=== PATIENT | male | born 1955 | race Caucasian/White ===

== ENCOUNTER 2020-02-20 09:20 | Day surgery (SDC) | payer OTHER ==
[2020-02-16 10:11] LABS: Absolute Lymphocytes (CBC) 0.6 K/uL (0.7-4.9); Basophils % 0.6 % (0-1.3); Hematocrit 32.3 % (39.6-49.0); Lymphocytes % 9.7 % (15.3-44.8); MPV 8.1 fL (7.6-11.3); RBC Red Blood Cell Count 3.99 M/uL (4.33-5.43)
--- NOTE | 2020-02-16 10:19 | RAD REPORT ---
EXAM DESCRIPTION: RAD - Chest Pa And Lat (2 Views) - 02/16/2020 9:43 am CLINICAL HISTORY: preop, pending hernia surgery COMPARISON: None TECHNIQUE: Frontal and lateral views of the chest were obtained. FINDINGS: The lungs are clear. Moderately large hiatal hernia is again identified matching the CT s tudy. Heart size is normal and central vasculature is within normal limits. No pleural effusion or p neumothorax seen. No acute bony finding noted. No aortic abnormality. IMPRESSION: No acute cardiopulmonary process.
--- NOTE | 2020-02-17 12:59 | EKG ---
Test Date: 2020-02-16 Test Time: 08:39:02 Information Security: STEVEN MEASUREMENT RESULTS: Intervals: Rate: 67 MN: 144 QRSD: 92 QT: 400 QTc: 422 [place]: P: 54 MN: 144 QRS: 18 T: 40 INTERPRETIVE STATEMENTS: Normal sinus rhythm Normal ECG Compared to ECG 06/11/2007 06:21:38 No significant changes Electronically Signed On 02-17-20 12:58:55 CDT by Betito Montes De Oca
[2020-02-20] MEDS ORDERED: CEFAZOLIN/SWI 1gm 1 GM/10 ML SYR ONE (09:50)
[2020-02-20] MEDS ORDERED: Ringers Lactate 1,000 ML IV ONE (09:50)
[2020-02-20] MEDS ORDERED: FENTANYL CITR 100 MCG/2 ML ONE (09:52)
[2020-02-20] MEDS ORDERED: ROCURONIUM 50 MG/5 ML VIAL IV ONE (09:52)
[2020-02-20] MEDS ORDERED: LIDOCAINE 1% MPF 5 ML VIAL ONE (09:52)
[2020-02-20] MEDS ORDERED: MIDAZOLAM HCL 2 MG/2 ML INJ ONE (09:52)
[2020-02-20] MEDS ORDERED: propofoL 200 MG/20 ML VIAL IV ONE (09:52)
[2020-02-20] MEDS ORDERED: dexAMETHasone 10 MG/ML VIAL ONE (10:48)
[2020-02-20] MEDS ORDERED: NS KCL 20MEQ 1,000 ML IV SCH (11:00)
[2020-02-20] MEDS ORDERED: ONDANSETRON 4 MG/2 ML VIAL ONE (11:13)
[2020-02-20] MEDS ORDERED: KETOROLAC 30 MG/ML INJ ONE (11:13)
[2020-02-20] MEDS ORDERED: GLYCOPYRROLATE 0.2 MG/ML SYR ONE (11:13)
[2020-02-20] MEDS ORDERED: Mastisol Adhesive Liq ONE (11:17)
[2020-02-20] MEDS ORDERED: NEOSTIGMINE 1 MG/ML -5 ML ONE (11:17)
--- OUTSIDE RECORDS SUMMARY | 2020-02-20 11:32 | XMS REPORT | Clinical Summary ---
:1955 Author Organization [facility] Address [address] [place] [address] Care Team Providers Name Role Phone Pcp Primary Care Provider Unavailable Allergies No Known Allergies Medications Medication Sig Dispensed Refills Start Date End Date Status lisinopril Take 20 mg by 0 Activ e (PRINIVIL,ZESTRIL) mouth daily. 20 MG tablet omeprazole Take 40 mg by 0 Activ e (PRILOSEC) 40 MG mouth daily. capsule atorvastatin Take 40 mg by 0 Act briseida (LIPITOR) 40 MG mouth daily. tablet acetaminophen-codei Take 1 tablet by 30 tablet 0 02/25/2019 ne (TYLENOL #3) mouth every 4 300-30 mg per (four) hours as tablet needed for Pain for up to 10 days. Max Daily Amount: 6 tablets docusate sodium Take 1 capsule 30 capsule 0 02/25/2019 019 (COLACE) 100 MG (100 mg total) by capsule mouth 2 (two) times daily as needed for Constipation for up to 10 days. ciprofloxacin HCl Take 1 tablet (500 10 tablet 0 02/25/2019 (CIPRO) 500 MG mg total) by mouth tablet 2 (two) times daily for 5 days. Active Problems Problem Noted Date Prostate cancer 02/23/2019 Encounters Date Type Specialty Care Team Description 02/23/2019 Surgery Pietro Ojeda MD ROBOTIC LAPAROSCOPY,PRO STAT ECTOMY W/ PELVI C LYMPH NODE DISSECTION 02/23/2019 Anesthesia Event Judy Rosario NP 02/23/2019 - Hospital Encounter General Internal Pietro Ojeda MD 02/25/2019 Medicine 02/23/2019 Travel after 02/19/2019 Social History Tobacco Use Types Packs/Day Years Used Date Former Smoker Quit: 1998 Smokeless Tobacco: Never Used Alcohol Use Drinks/Week oz/Week Comments No Alcohol Habits Answer Date Recorded How often do you have a drink containing alcohol? Never 02/10/2019 How many drinks containing alcohol do you have on a typical Not asked day when you are drinking? How often do you have six or more drinks on one occasion? No t asked Sex Assigned at Date Recorded Male 02/01/2019 4:15 AM CDT Job Start Date Occupation Industry Not on file Not on file Not on file Travel History Travel Start Travel End No recent travel history available. Last Filed Vital Signs Vital Sign Reading Time Taken Blood Pressure 119/69 02/25/2019 3:09 PM CDT Pulse 109 02/25/2019 3:09 PM CDT Temperature 37.3 C (99.2 F) 02/25/2019 3:09 PM CDT Respiratory Rate 19 02/25/2019 3:09 PM CDT Oxygen Saturation 97% 02/25/2019 3:09 PM CDT Inhaled Oxygen Concentration - - Weight 91.6 kg (202 lb) 02/23/2019 6:11 AM CDT Height 175.3 cm (5' 9.02") 02/23/2019 6:11 AM CDT Body Mass Index 29.82 02/23/2019 6:11 AM CDT Plan of Treatment Not on file Procedures Procedure Name Priority Date/Time Associated Comments Diagnosis HEMOGLOBIN AND STAT 02/25/2019 1:48 Results f or this HEMATOCRIT PM CDT procedure are i n the results section. CBC W/PLT COUNT & Routine 02/25/2019 4:16 Result s for this AUTO DIFFERENTIAL AM CDT procedure are in the results section. CBC W/PLT COUNT & Routine 02/25/2019 4:16 Result s for this AUTO DIFFERENTIAL AM CDT procedure are in the results section. BASIC METABOLIC PANEL Routine 02/25/2019 4:16 Re sults for this (7) AM CDT procedure are i n the results section. TRANSFUSION SERVICE 02/24/2019 5:51 REPORT - SCAN PM CDT CBC W/PLT COUNT & Routine 02/24/2019 7:06 Result s for this AUTO DIFFERENTIAL AM CDT procedure are in the results section. CBC W/PLT COUNT & Routine 02/24/2019 7:06 Result s for this AUTO DIFFERENTIAL AM CDT procedure are in the results section. BASIC METABOLIC PANEL Routine 02/24/2019 7:06 Re sults for this (7) AM CDT procedure are i n the results section. HEMOGLOBIN AND STAT 02/23/2019 8:22 Results f or this HEMATOCRIT PM CDT procedure are i n the results section. HEMOGLOBIN AND STAT 02/23/2019 2:40 Results f or this HEMATOCRIT PM CDT procedure are i n the results section. BASIC METABOLIC PANEL STAT 02/23/2019 2:40 Re sults for this (7) PM CDT procedure are i n the results section. TISSUE EXAM AP Routine 02/23/2019 9:06 Results for this AM CDT procedure are i n the results section. PROCEDURE W/ DAVINCI 02/23/2019 7:30 Prostate cancer AM CDT (HCC) Case Notes PANEL 1: 3 HRS Special Needs (DAVINCI SI) ROBOTIC LAPAROSCOPY,PROSTATECTOMY W/ 02/23/2019 7:30 AM CDT Prostate cancer PELVIC LYMPH NODE DISSECTION (HCC) Case Notes PANEL 1: 3 HRS Special Needs (DAVINCI SI) ABORH, MANUAL STAT 02/23/2019 6:48 AM CDT Res ults for this procedure are in the results section . after 02/19/2019 Results Hemoglobin and hematocrit (02/25/2019 1:48 PM CDT)Only the most recent of3 resultswithin the time period is included. Hemoglobin 8.4 (L) 13.7 - 17.5 GM/DL [facility] Hematocrit 25.8 (L) 40.1 - 51.0 % [facility] Specimen Blood Performing Organization Address City/State/Zipcode Phone Number [facility] [address] [place] [address] CENTER CBC with platelet count + automated diff (02/25/2019 4:16 AM CDT)Only the most recent of2 resultswithin the time period is included. WBC 10.4 3.5 - 10.5 K/L [facility] RBC 2.84 (L) 4.63 - 6.08 M/L [facility] Hemoglobin 8.3 (L) 13.7 - 17.5 GM/DL [facility] Hematocrit 25.8 (L) 40.1 - 51.0 % [facility] HE ALTH [facility] CENTER MCV 90.8 79.0 - 92.2 fL [facility] HE ALTH [facility] MCH 29.2 25.7 - 32.2 pg [facility] HE ALTH [facility] MCHC 32.2 (L) 32.3 - 36.5 GM/DL [facility] RDW 13.2 11.6 - 14.4 % [facility] ALTH [facility] Platelets 156 150 - 450 K/CU MM [facility] MPV 11.0 9.4 - 12.4 fL [facility] AL[facility] nRBC 0 0 - 0 /100 WBC [facility] % Neutros 74 % [facility] % Lymphs 17 % [facility] % Monos 7 % [facility] % Eos 1 % [facility] % Baso 0 % [facility] # Neutros 7.69 (H) 1.78 - 5.38 K/L [facility] # Lymphs 1.79 1.32 - 3.57 K/L [facility] # Monos 0.76 0.30 - 0.82 K/L [facility] # Eos 0.05 0.04 - 0.54 K/L [facility] # Baso 0.02 0.01 - 0.08 K/L [facility] Immature Granulocytes-Relative 1 0 - 1 % C HI [facility] Specimen Blood Performing Organization Address City/State/Zipcode Phone Number [facility] [address] [place] [address] [address] [place] Basic metabolic panel (02/25/2019 4:16 AM CDT)Only the most recent of3 results within the time period is included. Sodium 142 136 - 145 meq/L [facility] Potassium 3.6 3.5 - 5.1 meq/L [facility] Chloride 112 (H) 98 - 107 meq/L [facility] CO2 25 22 - 29 meq/L [facility] BUN 14 7 - 21 mg/dL [facility] Creatinine 0.95 0.57 - 1.25 mg/dL [facility] Glucose 90 70 - 105 mg/dL [facility] Calcium 7.5 (L) 8.4 - 10.2 mg/dL [facility] EGFR 80Comment: ESTIMATED GFR IS mL/min/1.73 sq m [facility] NOT ACCURATE CREATININE [facility] CLEARANCE IN PREDICTING GLOMERULAR FILTRATION RATE. ESTIMATED GFR IS NOT APPLICABLE FOR DIALYSIS PATIENTS. Specimen Blood Performing Organization Address City/State/Zipcode Phone Number [facility] [address] [place] [address] [place] TRANSFUSION SERVICE REPORT - SCAN (02/24/2019 5:51 PM CDT) Narrative Performed At This result has an attachment that is no t available. Tissue Exam (02/23/2019 9:06 AM CDT) Case Report Surgical Pathology Report Case: [id number] [facility] Authorizing Provider:Pietro Melvin MDCollected: 02/23/2019 0906 [facility] Ordering Location: [facility] PERIOPERATIVE Received:02/24/2019 1003 SERVICES Pathologist: Clive Wilson MD Specimens: A) - Vas Defe rens, Right B) - Lymph Node, RIGHT EXTERNAL ILIAC LYMPH NODE C) - Lymph Node, RIGHT HYPOGASTRIC LYMPH NODE D) - Lymph Node, RIGHT OBTURATOR LYMPH NODE E) - Lymph Node, PERIPROSTATIC LYMPH NODE F) - Lymph Node, Pelvic, Left G) - Soft Tissue, Other, NODE OF CLOQUET H) - Prostate DIAGNOSIS A. VAS DEFERENS, RIGHT, EXCISION: [facility] - NO PATHOLOGIC DIAGNOSIS B [facility] B. SOFT TISSUE, RIGHT EXTERNAL ILIAC, EXCISION: - BENIGN FIBROADIPOSE TISSUE - NO LYMPHOID TISSUE IDENTIFIED C. LYMPH NODES, RIGHT HYPOGASTRIC, DISSECTION: - TWO BENIGN LYMPH NODES (0/2) D. LYMPH NODES, RIGHT OBTURATOR, DISSECTION: - FOUR BENIGN LYMPH NODES (0/4) E. SOFT TISSUE, PERIPROSTATIC, EXCISION: - BENIGN FIBRO-ADIPOSE TISSUE - NO LYMPHOID TISSUE IDENTIFIED F. LYMPH NODES, LEFT PELVIC, DISSECTION: - THREE BENIGN LYMPH NODES (0/3) G. LYMPH NODES, "NODE OF CLOQUET", DISSECTION: - THREE BENIGN LYMPH NODES (0/3) H. PROSTATE, ROBOTIC ASSISTED LAPAROSCOPIC RADIC AL PROSTATECTOMY: - ADENOCARCINOMA, KATHERIN 4+4= 8, ESTABLISH ED EXTRAPROSTATIC EXTENSION SURGICAL MARGINS ARE NEGATIVE SEMINAL VESICLES, ROBOTIC ASSISTED LAPAROSCO PIC RADICAL PROSTATECTOMY: - INVOLVEMENT BY ADENOCARCINOMA OF PROSTATE Signing Pathologist Direct Phone Line: COMMENT The tumor is present mostly [facility] in the right peripheral zone [facility] with established extraprostatic extension into the right neurovascular bundle but with negative surgical margins. This tumor involves the seminal vesicles, shows lymph/vascular invasion as well as intraductal carcinoma and large volume perineural space invasion. The latter three are these are adverse prognostic indicators. There are also smaller foci of better differentiated tumor in the right transition zone at the base and in the left peripheral zone. SYNOPTIC REPORT PROSTATE GLAND: Radical Pros tatectomy(Prostate Res - All Specimens) [facility] SPECIMEN Procedure:Radical prostatectomy Prostate Size: Prostate Weight (g):45.4 g Prostate Greatest D imension in Centimeters (cm):4.2 Centimeters (cm) Additional Dimension in Centime ters (cm):3.3 Centimeters (cm) Additional Dimension in Centime ters (cm):3.2 Centimeters (cm) TUMOR Histologic Type:Acinar adenocarcino ma Histologic Type:Ductal adenocarcino ma Histologic Grade: [place] Pattern: Percentage of Pattern 4:90 % Percentage of Pattern 5:2 % Primary [place] Pattern:Pat tern 4 Secondary [place] Pattern:P attern 4 Tertiary [place] Pattern:Pa ttern 5 Total [place] Score:8 Grade Group:2 Intraductal Carcinoma (IDC):Present Tumor Extent: Tumor Quantitation: Estimated percentage of prostate involved by tumor: 25 % Tumor Quantitation:Tumor size Greatest Dimens ion in Millimeters (mm):40 Millimeters (mm) Extraprostatic Extension (EPE): Present, nonfocal Location of Ext raprostatic Extension:Right postero-lateral (neurovascular bundle) Location of Extraprostatic Extensio n:Right posterior Urinary Bladder Neck Invasion:N ot identified Seminal Vesicle Invasion:Presen t :Bilateral Accessory Findings: Treatment Effect:No known presu rgical therapy Lymphovascular Invasion:Present Perineural Invasion:Present MARGINS Margins:Uninvolved by invasive carc inoma :Benign prostate glands present at surgical margin LYMPH NODES Number of Lymph Nodes Involved:0 Number of Lymph Nodes Examined:12 PATHOLOGIC STAGE CLASSIFICATION (pTNM, AJCC 8th Edition) TNM Descriptors:Not applicable Primary Tumor (pT):pT3b Regional Lymph Nodes (pN):pN0 Distant Metastasis (pM) :Not applicable - pM cannot be determined from the submitted specimen(s) ADDITIONAL FINDINGS Additional Pathologic F indings:High-grade prostatic intraepithelial neoplasia (PIN) Additional Pathologic Findings:Nodu lar prostatic hyperplasia CPT Code(s) 85264 X 3, 02429 X 4, 02103 [facility] GROSS DESCRIPTION A. Container 1 is labeled "r ight vas deferens" and consists of a tubular structure, which is moreno-pink in color measuring 2.0 cm in length with a maximum diameter of 2 to 3 mm. The specimen is serially cross sectioned and submitted in cassette A1. [facility] B. Specimen B consists of a portion of fatty tissue measuring 7 x 1.5 x 0.5 cm. The specimen is bisected with no apparent lymph nodes, and all of the tissue is submitted in cassettes B1 and B2. C. Specimen 3 is labeled "ly mph node tissue" and consists of a single portion of yellow adipose tissue measuring 4.0 x 1.0 x 0.8 cm. A lymph node is evident at one edge, which is largely fatty replaced, and that is submitted in ca ssette C1 with the remainder of the adipose tissue submitted as C2. D. Container number 4 is lab eled "right obturator lymph node" and consists of fragments of yellow adipose tissue measuring 6 x 2 x 1.5 cm. A bisected lymph node is submitted in cassettes D1 and D2, as t wo separate lymph nodes with the remainder of the adipose tissue submitted as D3 through D4. E. The next container is lab eled "periprostatic lymph node" and consists of yellow adipose tissue measuring 3.5 x 2 x 1.5 cm. No grossly evident lymph nodes are submitted, but the entire fatty specimen is submitted in cassettes E1 and E2. F. The next container is lab eled "left pelvic lymph node" and consists of portions of yellow adipose tissue with one grossly apparent lymph node submitted in cassette F1 with the remainder of the adipose tissue submitted as F2 and F3. G. The next container is lab eled "node of Ackley" and consists of a single portion of yellow adipose tissue measuring 3.5 x 2.0 x 1.5 cm. No apparent lymph node tissue is seen, but the entire specimen is submitted as G1 through G3. JCD/ew H. Received as radical prost atectomy in formalin labeled with the patient's name, Perry Isaac" is a prostate with bilateral seminal vesicles and vas deferentia. The prostate weighs 45.4 gm and measures 3.3 cm apex to base, 4.2 cm transversely and 3.2 cm anterior to posterior. The right and left seminal v esicles measure 3.0 x 1.5 x 0.7 cm and 2.8 x 2.0 x 0.5 cm respectively. The right and left vas deferentia measure 4.5 cm and 4.0 cm in length respectively and 0.5 cm in diameter. The capsular surface of the prostate is purple-moreno to red, dusky, and focally ragged. Ink code: right black; left side blue. The prostate is serially sec tioned from apex to base in entirety. The total number of slices including seminal vesicles and vas deferentia: 11. The sectioning of the prosta te reveals pink-moreno to kan-white, homogenous, focally nodular prostatic parenchyma throughout. No discrete masses are identified. The sectioning of the semina l vesicles reveals a pink-moreno unremarkable cut surface. Section code: apical margins are submitted in cassette H1; the bladder neck margins are submitted in cassette H2. The prostate slices are submitted in cassettes H3 to H9. The right and left seminal v esicles at the base of the prostate are submitted in cassette H10, the seminal vesicle tips along with vas deferentia are submitted in cassette H10. SM[facility]/pl MICROSCOPIC DESCRIPTION Performed. [facility] ER Specimen Tissue Tissue - Structure of lymph node (body s tructure) Tissue - Structure of lymph node (body s tructure) Tissue - Structure of lymph node (body s tructure) Tissue - Structure of lymph node (body s tructure) Tissue - Lymph Node, Pelvic, Left Tissue - Soft tissue (navigational yuliana pt) Tissue - Prostatic structure (body struc ture) Performing Organization Address [facility] Phone Number [address] [address] C[facility] [place], manual (02/23/2019 6:48 AM CDT) ABO Grouping A [facility] Rh Factor POS [facility] Specimen Blood Performing Organization Address City/State/Zipcode Phone Number [facility] [address] [place] [address] after 02/19/2019 Insurance Payer Benefit Plan / Subscriber ID Type Phone Address Group [employer] - MEDICARE AET[employer] MEDICARE HMO xxxxxxxx [address] [place] [address] Randy (Home) KEENE [phone] [place] ([place]) [place] [address] Advance Directives For more information, please contact:[address] [phone] Code Status Date Activated Date Inactivated Comments Full Code 02/23/2019 2:33 PM 02/25/2019 8:22 PM This code status was determined by: Patient
--- OUTSIDE RECORDS SUMMARY | 2020-02-20 11:32 | XMS REPORT | Continuity of Care Document ---
:1955 Author Organization [facility] Address [address] [place] [address] Dr. Morel [address] [place] [id number] Care Team Providers Name Role Phone KANWAL Attending Clinician Unavailable KANWAL Admitting Clinician Unavailable Problems This patient has no known problems. Allergies, Adverse Reactions, Alerts This patient has no known allergies or adverse reactions. Medications This patient has no known medications. Procedures This patient has no known procedures. Results Test Description Test Time Test Comments Results Result Formerly [facility] e Comments TISSUE EXAM 2019-03-08 Surgical Pathology 14:51:00 Report Case: [id number] Authorizing Provider: Pietro Ojeda MD Collected: 02/23/2019 0906 Ordering Location: [facility] PERIOPERATIVE Received: 02/24/2019 1003 SERVICES Pathologist: Clive Wilson MD Specimens: A) - Vas Deferens, Right B) - Lymph Node, RIGHT EXTERNAL ILIAC LYMPH NODE C) - Lymph Node, RIGHT HYPOGASTRIC LYMPH NODE D) - Lymph Node, RIGHT OBTURATOR LYMPH NODE E) - Lymph Node, PERIPROSTATIC LYMPH NODE F) - Lymph Node, Pelvic, Left G) - Soft Tissue, Other, NODE OF CLOQUET H) - Prostate A. VAS DEFERENS, RIGHT, EXCISION: - NO PATHOLOGIC DIAGNOSISB. SOFT TISSUE, RIGHT EXTERNAL ILIAC, EXCISION: - BENIGN FIBROADIPOSE TISSUE - NO LYMPHOID TISSUE IDENTIFIEDC. LYMPH NODES, RIGHT HYPOGASTRIC, DISSECTION: - TWO BENIGN LYMPH NODES (0/2)D. LYMPH NODES, RIGHT OBTURATOR, DISSECTION: - FOUR BENIGN LYMPH NODES (0/4)E. SOFT TISSUE, PERIPROSTATIC, EXCISION: - BENIGN FIBRO-ADIPOSE TISSUE - NO LYMPHOID TISSUE IDENTIFIEDF. LYMPH NODES, LEFT PELVIC, DISSECTION: - THREE BENIGN LYMPH NODES (0/3)G. LYMPH NODES, "NODE OF CLOQUET", DISSECTION: - THREE BENIGN LYMPH NODES (0/3)H. 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 PROSTATE GLAND: Radical Prostatectomy (Prostate Res - All Specimens)SPECIMEN Procedure: Radical prostatectomy Prostate Size: Prostate Weight (g): 45.4 g Prostate Greatest Dimension in Centimeters (cm): 4.2 Centimeters (cm) Additional Dimension in Centimeters (cm): 3.3 Centimeters (cm) Additional Dimension in Centimeters (cm): 3.2 Centimeters (cm)TUMOR Histologic Type: Acinar adenocarcinoma Histologic Type: Ductal adenocarcinoma Histologic Grade: Katherin Pattern: Percentage of Pattern 4: 90 % Percentage of Pattern 5: 2 % Primary [place] Pattern: Pattern 4 Secondary [place] Pattern: Pattern 4 Tertiary [place] Pattern: Pattern 5 Total Katherin Score: 8 Grade Group: 2 Intraductal Carcinoma (IDC): Present Tumor Extent: Tumor Quantitation: Estimated percentage of prostate involved by tumor: 25 % Tumor Quantitation: Tumor size Greatest Dimension in Millimeters (mm): 40 Millimeters (mm) Extraprostatic Extension (EPE): Present, nonfocal Location of Extraprostatic Extension: Right postero-lateral (neurovascular bundle) Location of Extraprostatic Extension: Right posterior Urinary Bladder Neck Invasion: Not identified Seminal Vesicle Invasion: Present : Bilateral Accessory Findings: Treatment Effect: No known presurgical therapy Lymphovascular Invasion: Present Perineural Invasion: Present MARGINS Margins: Uninvolved by invasive carcinoma : Benign prostate glands present at surgical margin LYMPH NODES Number of Lymph Nodes Involved: 0 Number of Lymph Nodes Examined: 12 PATHOLOGIC STAGE CLASSIFICATION (pTNM, AJCC 8th Edition) TNM Descriptors: Not applicable Primary Tumor (pT): pT3b Regional Lymph Nodes (pN): pN0 Distant Metastasis (pM): Not applicable - pM cannot be determined from the submitted specimen(s) ADDITIONAL FINDINGS Additional Pathologic Findings: High-grade prostatic intraepithelial neoplasia (PIN) Additional Pathologic Findings: Nodular prostatic hyperplasia 80623 X 3, 34799 X 4, 32627S. Container 1 is labeled "right vas deferens" and consists of a tubular structure, which is moreno-pink in color measuring 2.0 cm in length with a maximum diameter of 2 to 3 mm. The specimen is serially cross sectioned and submitted in cassette A1.B. Specimen B consists of a portion of fatty tissue measuring 7 x 1.5 x 0.5 cm. The specimen is bisected with no apparent lymph nodes, and all of the tissue is submitted in cassettes B1 and B2.C. Specimen 3 is labeled "lymph node tissue" and consists of a single portion of yellow adipose tissue measuring 4.0 x 1.0 x 0.8 cm. A lymph node is evident at one edge, which is largely fatty replaced, and that is submitted in cassette C1 with the remainder of the adipose tissue submitted as C2.D. Container number 4 is labeled "right obturator lymph node" and consists of fragments of yellow adipose tissue measuring 6 x 2 x 1.5 cm. A bisected lymph node is submitted in cassettes D1 and D2, as two separate lymph nodes with the remainder of the adipose tissue submitted as D3 through D4.E. The next container is labeled "periprostatic lymph node" and consists of yellow adipose tissue measuring 3.5 x 2 x 1.5 cm. No grossly evident lymph nodes are submitted, but the entire fatty specimen is submitted in cassettes E1 and E2.F. The next container is labeled "left pelvic lymph node" and consists of portions of yellow adipose tissue with one grossly apparent lymph node submitted in cassette F1 with the remainder of the adipose tissue submitted as F2 and F3.G. The next container is labeled "node of [place]" and consists of a single portion of yellow adipose tissue measuring 3.5 x 2.0 x 1.5 cm. No apparent lymph node tissue is seen, but the entire specimen is submitted as G1 through G3. JCD/ewH. Received as radical prostatectomy in formalin labeled with the patient's name, Sacha Isaac" is a prostate with bilateral seminal vesicles and vas deferentia. The prostate weighs 45.4 gm and measures 3.3 cm apex to base, 4.2 cm transversely and 3.2 cm anterior to posterior. The right and left seminal vesicles measure 3.0 x 1.5 x 0.7 cm and 2.8 x 2.0 x 0.5 cm respectively. The right and left vas deferentia measure 4.5 cm and 4.0 cm in length respectively and 0.5 cm in diameter. The capsular surface of the prostate is purple-moreno to red, dusky, and focally ragged. Ink code: right black; left side blue.The prostate is serially sectioned from apex to base in entirety. The total number of slices including seminal vesicles and vas deferentia: 11. The sectioning of the prostate reveals pink-moreno to kan-white, homogenous, focally nodular prostatic parenchyma throughout. No discrete masses are identified. The sectioning of the seminal vesicles reveals a pink-moreno unremarkable cut surface. Section code: apical margins are submitted in cassette H1; the bladder neck margins are submitted in cassette H2. The prostate slices are submitted in cassettes H3 to H9.The right and left seminal vesicles at the base of the prostate are submitted in cassette H10, the seminal vesicle tips along with vas deferentia are submitted in cassette H10. SMH/plPerformed. HEMOGLOBIN AND HEMATOCRIT 2019-02-25 14:05:00 Test Item Value Reference Range Interpretation Comme nts HEMOGLOBIN (BEAKER) (test code = 410) 8.4 GM/DL 13.7-17.5 L HEMATOCRIT (BEAKER) (test code = 411) 25.8 % 40.1-51.0 L BASIC METABOLIC [id number] 06:19:00 Test Item Value Reference Range Interpretation Comments SODIUM (BEAKER) 142 meq/L 136-145 (test code = 381) POTASSIUM (BEAKER) 3.6 meq/L 3.5-5.1 (test code = 379) CHLORIDE (BEAKER) 112 meq/L 98-107 H (test code = 382) CO2 (BEAKER) (test 25 meq/L 22-29 code = 355) BLOOD UREA NITROGEN 14 mg/dL 7-21 (BEAKER) (test code = 354) CREATININE (BEAKER) 0.95 mg/dL 0.57-1.25 (test code = 358) GLUCOSE RANDOM 90 mg/dL 70-105 (BEAKER) (test code = 652) CALCIUM (BEAKER) 7.5 mg/dL 8.4-10.2 L (test code = 697) EGFR (BEAKER) (test 80 mL/min/1.73 ESTIMA JOSÉ GFR IS code = 1092) sq m NOT ACCURATE CREATININE CLEARANCE IN PREDICTING GLOMERULAR FILTRATION RATE . ESTIMATED GFR I S NOT APPLICABLE FOR DIALYSIS PATIEN TS. CBC W/PLT COUNT & AUTO [id number] 05:40:00 Test Item Value Reference Range Interpretation Comments WHITE BLOOD CELL COUNT (BEAKER) 10.4 K/ L 3.5-10.5 (test code = 775) RED BLOOD CELL COUNT (BEAKER) 2.84 M/ L 4.63-6.08 L (test code = 761) HEMOGLOBIN (BEAKER) (test code = 8.3 GM/DL 13.7-17.5 L 410) HEMATOCRIT (BEAKER) (test code = 25.8 % 40.1-51.0 L 411) MEAN CORPUSCULAR VOLUME (BEAKER) 90.8 fL 79.0-92.2 (test code = 753) MEAN CORPUSCULAR HEMOGLOBIN 29.2 pg 25.7-32.2 (BEAKER) (test code = 751) MEAN CORPUSCULAR HEMOGLOBIN CONC 32.2 GM/DL 32.3-36.5 L (BEAKER) (test code = 752) RED CELL DISTRIBUTION WIDTH 13.2 % 11.6-14.4 (BEAKER) (test code = 412) PLATELET COUNT (BEAKER) (test 156 K/CU MM 150-450 code = 756) MEAN PLATELET VOLUME (BEAKER) 11.0 fL 9.4-12.4 (test code = 754) NUCLEATED RED BLOOD CELLS 0 /100 WBC 0-0 (BEAKER) (test code = 413) NEUTROPHILS RELATIVE PERCENT 74 % (BEAKER) (test code = 429) LYMPHOCYTES RELATIVE PERCENT 17 % (BEAKER) (test code = 430) MONOCYTES RELATIVE PERCENT 7 % (BEAKER) (test code = 431) EOSINOPHILS RELATIVE PERCENT 1 % (BEAKER) (test code = 432) BASOPHILS RELATIVE PERCENT 0 % (BEAKER) (test code = 437) NEUTROPHILS ABSOLUTE COUNT 7.69 K/ L 1.78-5.38 H (BEAKER) (test code = 670) LYMPHOCYTES ABSOLUTE COUNT 1.79 K/ L 1.32-3.57 (BEAKER) (test code = 414) MONOCYTES ABSOLUTE COUNT (BEAKER) 0.76 K/ L 0.30-0.82 (test code = 415) EOSINOPHILS ABSOLUTE COUNT 0.05 K/ L 0.04-0.54 (BEAKER) (test code = 416) BASOPHILS ABSOLUTE COUNT (BEAKER) 0.02 K/ L 0.01-0.08 (test code = 417) IMMATURE GRANULOCYTES-RELATIVE 1 % 0-1 PERCENT (BEAKER) (test code = 2801) BASIC METABOLIC [id number] 08:18:00 Test Item Value Reference Range Interpretation Comments SODIUM (BEAKER) 136 meq/L 136-145 (test code = 381) POTASSIUM (BEAKER) 3.1 meq/L 3.5-5.1 L (test code = 379) CHLORIDE (BEAKER) 105 meq/L 98-107 (test code = 382) CO2 (BEAKER) (test 22 meq/L 22-29 code = 355) BLOOD UREA NITROGEN 18 mg/dL 7-21 (BEAKER) (test code = 354) CREATININE (BEAKER) 1.22 mg/dL 0.57-1.25 (test code = 358) GLUCOSE RANDOM 123 mg/dL 70-105 H (BEAKER) (test code = 652) CALCIUM (BEAKER) 7.5 mg/dL 8.4-10.2 L (test code = 697) EGFR (BEAKER) (test 60 mL/min/1.73 ESTIMA JOSÉ GFR IS code = 1092) sq m NOT ACCURATE CREATININE CLEARANCE IN PREDICTING GLOMERULAR FILTRATION RATE . ESTIMATED GFR I S NOT APPLICABLE FOR DIALYSIS PATIEN TS. CBC W/PLT COUNT & AUTO [id number] 07:26:00 Test Item Value Reference Range Interpretation Comments WHITE BLOOD CELL COUNT (BEAKER) 13.3 K/ L 3.5-10.5 H (test code = 775) RED BLOOD CELL COUNT (BEAKER) 3.24 M/ L 4.63-6.08 L (test code = 761) HEMOGLOBIN (BEAKER) (test code = 9.5 GM/DL 13.7-17.5 L 410) HEMATOCRIT (BEAKER) (test code = 28.8 % 40.1-51.0 L 411) MEAN CORPUSCULAR VOLUME (BEAKER) 88.9 fL 79.0-92.2 (test code = 753) MEAN CORPUSCULAR HEMOGLOBIN 29.3 pg 25.7-32.2 (BEAKER) (test code = 751) MEAN CORPUSCULAR HEMOGLOBIN CONC 33.0 GM/DL 32.3-36.5 (BEAKER) (test code = 752) RED CELL DISTRIBUTION WIDTH 13.1 % 11.6-14.4 (BEAKER) (test code = 412) PLATELET COUNT (BEAKER) (test 202 K/CU MM 150-450 code = 756) MEAN PLATELET VOLUME (BEAKER) 10.5 fL 9.4-12.4 (test code = 754) NUCLEATED RED BLOOD CELLS 0 /100 WBC 0-0 (BEAKER) (test code = 413) NEUTROPHILS RELATIVE PERCENT 85 % (BEAKER) (test code = 429) LYMPHOCYTES RELATIVE PERCENT 8 % (BEAKER) (test code = 430) MONOCYTES RELATIVE PERCENT 7 % (BEAKER) (test code = 431) EOSINOPHILS RELATIVE PERCENT 0 % (BEAKER) (test code = 432) BASOPHILS RELATIVE PERCENT 0 % (BEAKER) (test code = 437) NEUTROPHILS ABSOLUTE COUNT 11.22 K/ L 1.78-5.38 H (BEAKER) (test code = 670) LYMPHOCYTES ABSOLUTE COUNT 1.05 K/ L 1.32-3.57 L (BEAKER) (test code = 414) MONOCYTES ABSOLUTE COUNT (BEAKER) 0.93 K/ L 0.30-0.82 H (test code = 415) EOSINOPHILS ABSOLUTE COUNT 0.00 K/ L 0.04-0.54 L (BEAKER) (test code = 416) BASOPHILS ABSOLUTE COUNT (BEAKER) 0.01 K/ L 0.01-0.08 (test code = 417) IMMATURE GRANULOCYTES-RELATIVE 0 % 0-1 PERCENT (BEAKER) (test code = 2801) HEMOGLOBIN AND [id number] 20:32:00 Test Item Value Reference Range Interpretation Comments HEMOGLOBIN (BEAKER) (test code = 10.5 GM/DL 13.7-17.5 L 410) HEMATOCRIT (BEAKER) (test code = 32.6 % 40.1-51.0 L 411) BASIC METABOLIC [id number] 15:06:00 Test Item Value Reference Range Interpretation Comments SODIUM (BEAKER) 140 meq/L 136-145 (test code = 381) POTASSIUM (BEAKER) 3.7 meq/L 3.5-5.1 Specimen slightly (test code = 379) hemolyzed CHLORIDE (BEAKER) 108 meq/L 98-107 H (test code = 382) CO2 (BEAKER) (test 23 meq/L 22-29 code = 355) BLOOD UREA NITROGEN 16 mg/dL 7-21 (BEAKER) (test code = 354) CREATININE (BEAKER) 1.38 mg/dL 0.57-1.25 H Specimen slightly (test code = 358) hemolyzed GLUCOSE RANDOM 153 mg/dL 70-105 H (BEAKER) (test code = 652) CALCIUM (BEAKER) 7.5 mg/dL 8.4-10.2 L (test code = 697) EGFR (BEAKER) (test 52 mL/min/1.73 ESTIMA JOSÉ GFR IS code = 1092) sq m NOT ACCURATE CREATININE CLEARANCE IN PREDICTING GLOMERULAR FILTRATION RATE . ESTIMATED GFR I S NOT APPLICABLE FOR DIALYSIS PATIEN TS. HEMOGLOBIN AND [id number] 14:47:00 Test Item Value Reference Range Interpretation Comments HEMOGLOBIN (BEAKER) (test code = 10.1 GM/DL 13.7-17.5 L 410) HEMATOCRIT (BEAKER) (test code = 30.9 % 40.1-51.0 L 411) [id number] 11:42:00 Test Item Value Reference Range Interpretation Comments SODIUM (BEAKER) (test code = 381) 136 meq/L 136-145 POTASSIUM (BEAKER) (test code = 3.6 meq/L 3.5-5.1 379) CHLORIDE (BEAKER) (test code = 382) 104 meq/L 98-107 CO2 (BEAKER) (test code = 355) 22 meq/L 22-29 BUN AND [id number] 11:42:00 Test Item Value Reference Range Interpretation Comments BLOOD UREA NITROGEN 22 mg/dL 7-21 H (BEAKER) (test code = 354) CREATININE (BEAKER) 1.32 mg/dL 0.57-1.25 H (test code = 358) EGFR (BEAKER) (test 54 mL/min/1.73 ESTIMA JOSÉ GFR IS code = 1092) sq m NOT ACCURATE CREATININE CLEARANCE IN PREDICTING GLOMERULAR FILTRATION RATE . ESTIMATED GFR I S NOT APPLICABLE FOR DIALYSIS PATIEN TS. [id number] 10:45:00 Test Item Value Reference Range Interpretation Comments HEMOGLOBIN (BEAKER) (test code = 13.7 GM/DL 13.7-17.5 410) PLATELET [id number] 10:45:00 Test Item Value Reference Range Interpretation Comments PLATELET COUNT (BEAKER) (test 246 K/CU MM 150-450 code = 756) CT, [id number] 09:55:00FINAL REPORT EXAM: CT ABDOMEN AND PELVIS WITH IV CONTRASTINDICATION: Malignant neoplasm of the prostateCOMPARISON: None TECHNIQUE: The abdomen and pelvis were scanned using a multidetector helical scanner. Coronal and sagittal reformations were obtained. Dose modulation, iterative reconstruction, and/or weight based adjustment of the mA/kV was utilized to reduce the radiationdose to as low as reasonably achievable. Routine protocol performed.IV Contrast: 80 cc Isovue 300Oral Contrast: WaterCTDIvol has been reviewed. It is below the limits set by the Radiation Protocol Committee (RPC). FINDINGS:LOWER THORAX: Lung bases clear. Heart size normal. Moderate size hiatus hernia noted. LIVER: No massesBILIARY: Normal gallbladder. No ductal dilation. SPLEEN: No masses. Small nodule adjacent to the spleen compatible with accessory splenic tissue.PANCREAS: No masses ADRENALS: Left adrenal nodule measuring 1.8 cm with internal postcontrast density 35 HU.KIDNEYS: Kidneys enhance symmetrically. There is a 2.2 x 1.4 cm smoothly marginated lower pole right renal mass, slightly more dense than a simple cyst. The appearance suggests a likely proteinaceous cyst. GI TRACT: No wall thickening or obstruction. Normal appendix. VESSELS: The abdominal aorta is atherosclerotic with calcified plaque. No aneurysm. IVC and portal system appear unremarkable. PERITONEUM/RETROPERITONEUM: No pneumoperitoneum or ascites.LYMPH NODES: No dominant lymph node mass is seen in abdomen, retroperitoneum or pelvis. REPRODUCTIVE ORGANS: Prostate measures 4.9 x 3.8 cm transversely and contains scattered calcifications.BLADDER: Urinary bladder is nondistended. It appears unremarkable. SOFT TISSUES: Superficial surrounding soft tissue shows bilateral inguinal hernias, larger on the left, containing fat.BONES: No acute or suspicious bony lesions. There is degenerative change with disc space narrowing at L1-2 and marked disc space narrowing with osteophytes and endplate sclerosis at L2-3. A well-defined small sclerotic focus in the right femoral head compatible with bone island. IMPRESSION: 1. No CT ev idence for metastatic disease.2. 1.8 cm left adrenal nodule, indeterminate on single phase examination but likely adrenal adenoma. Consider comparison with any prior examinations, adrenal mass protocolCT or follow-up examination to ascertain stability.3. 2.2 cm mildly hyperdense cyst at the lower pole right kidney. Signed: Erum Bustamante MDReport Verified Date/Time: 02/03/2019 09:55:56 Reading Location: [facility] Reading Room [address] [place] [address] [id number] 12:35:00 Test Item Value Reference Range Interpretation Comments POC-CREATININE 1.3 mg/dL 0.6-1.3 TESTED AT [facility] 7200 ([facility]) (test [facility] G A code = 1859) [facility] 7703 0 POC-EGFR 55 mL/min/1.73M2 ([employer] (test code = 1860)
[2020-02-20] MEDS: HYDROMORPHONE HCL 1 MG/ML INJ ONE ×2 (11:35→11:45)
[2020-02-20] MEDS ORDERED: PROMETHAZINE INJ 25 MG/ML AMP ONE ×2 (11:38→11:42)
[2020-02-20] MEDS ORDERED: HYDROMORPHONE HCL 1 MG/ML INJ ONE (12:01)
[2020-02-20 12:02] VITALS: TEMP 96.8
[2020-02-20] MEDS ORDERED: TRAMADOL 37.5mg/APAP 325mg PER TAB ONE (12:53)
--- NOTE | 2020-02-20 13:06 | OP ---
Date of Procedure: 02/20/2020 Surgeon: Tim Alegria MD Preoperative Diagnosis: Incarcerated ventral hernia. Postoperative Diagnosis: Incarcerated ventral hernia. Procedure: Laparoscopic repair of incarcerated ventral hernia. Estimated Blood Loss: Minimal. Specimens: Hernia sac. Findings: As above. Anesthesia: General. Complications: None. Patient tolerated the procedure in stable condition and taken to Recovery in good general condition. Procedure In Detail: Patient was brought to the OR and placed in supine position, general anesthesia begun. Patient was prepped and draped in the usual sterile fashion. Marcaine 0.5% was infiltrated locally. A 15-blade was used to make a 1 cm left upper quadrant incision. Subcutaneous tissue was d ivided. Fascia was identified and divided. #1 Vicryl stay suture was placed. Peritoneal cavity ent ered with sharp and blunt dissection, 12 mm trocar was placed into the peritoneal cavity under direct vision. Pneumoperitoneum was established and a 5 mm trocar was placed in the left lower quadrant. Laparoscopy revealed incarcerated omentum into the hernia sac which was reviewed by sharp and blunt d issection. Bleeding controlled with cautery. Then, a 3 cm incision was made over the hernia. Subcu taneous tissue was divided. Hernia sac was identified, excised, and sent to Pathology as specimen. Approximately a 2.5 cm incision defect remained. Ventralex large placed in through this opening and then #1 PDS used to close the fascial defect and secure the Ventralex as well and then pneumoperitone um reestablished and the mesh was completely deployed with at least 3 cm margins on all sides of the hernia defect and then tacker used to tack the mesh and secure it secondarily to the peritoneal surfa ce. No evidence of bleeding or bowel injury appreciated. Subsequently, all trocars were removed und er direct vision. Stay sutures were tied to each other to reapproximate the fascial defect. Subcuta neous wounds were irrigated. Bleeding controlled with cautery. 3-0 chromic used for subcutaneous ti ssue and closed the skin. Sterile dressing was applied. Patient was awakened and taken to Recovery in good general condition. Discharge Note: Patient will go to Day Surgery and home when stable. Disposition: Home. Condition: Stable. Discharge Instructions: Resume home medications and diet. Activity as tolerated. No heavy lifting. Remove outer dressing in 2 days. Shower. Keep wound clean and dry. Keep Steri-Strips on at all t imes. Follow up in my office in 1 week. Call for appointment. Ultracet 1 tablet p.o. q.4 p.r.n. pa in. Incentive spirometry and abdominal binder as ordered. /MODL Voice ID: [id number] Report ID: [id number]
[2020-02-20 14:18] VITALS: O2SAT 97
[2020-02-20 14:19] VITALS: BP 116/67
== END 2020-02-20 13:45 | disposition home or self-care (01) ==
LOC: OR 09:20
PROVIDERS: ATTEND Surgery
PROC: 0WUF4JZ Supplement Abdominal Wall with Synthetic Substitute, Percutaneous Endoscopic Approach (ICD-10-PCS; principal; 2020-02-20 10:45)
DX: K43.6 Other and unspecified ventral hernia with obstruction, without gangrene (principal); Z11.59 Encounter for screening for other viral diseases; I10 Essential (primary) hypertension; K21.9 Gastro-esophageal reflux disease without esophagitis; Z88.6 Allergy status to analgesic agent
CPT/HCPCS: 93005; 85025; 80048; 36415 ×2; 84132; 88302; 71046; 49653; J2704; J2550; J2250; J3010; J1100; J1170 ×2; J2710; J0690; J7120; J2405